=== PATIENT | female | born 1990 | race Caucasian/White ===

== ENCOUNTER 2016-07-05 02:20 | Emergency (ER) | payer MEDICAID ==
[~2016-07-05] VITALS: Ht 157.5 cm; Wt 75.1 kg
[~2016-07-05 02:20] MED LIST: AZIT500T2 PO; IBUP800T23 PO
[2016-07-05] MEDS ORDERED: TYLE325T PO (02:42)
[2016-07-05 03:09] LABS: BLOOD, URINE TRACE (NEG); GLUCOSE,URINE NEG (NEG); KETONE, URINE NEG (NEG); NITRITE,URINE NEG (NEG); PH, URINE 5.5 (5.0-8.5)
[2016-07-05 03:12] LABS: URINE COLOR YELLOW (YELLW/STRAW)
[2016-07-05 03:13] LABS: BACTERIA, URINE FEW /hpf; COMMENT (UR) CULT NOT INDICATED; CULTURE IF INDICATED CULT NOT INDICATED; RBC, URINE 0-2 /hpf (0-3); SQUAMOUS EPITHELIAL CELL URINE > 8 /hpf (0-5)
[2016-07-05] MEDS ORDERED: AZITHROMYCIN PWD FOR SUSP 1 GM PACKET PO ONE ×2 (04:45→05:00)
[2016-07-05] MEDS ORDERED: LIDOCAINE HCL 1% 50 ML VIAL IM ONE (04:45)
--- NOTE | 2016-07-05 05:10 | PD ---
HPI Chief Complaint: [place] Problem/Complaint Time Seen by Provider: 04:33 Travel History International Travel<30 days: No Contact w/Intl Traveler<30days: No Traveled to known affect area: No History of Present Illness HPI The patient is a 25-year-old female who came in with her boyfriend eloy because her boyfriend had a penile discharge. The patient denies any fever, joint pain, skin rash, sore throat, skin lesions, nausea, vomiting or vaginal discharge. Her last menstrual period was 3 weeks ago. She does not think she is . She otherwise has no symptoms. PFSH Past Medical History Asthma: Yes Heart Rhythm Problems: Yes ("heart murmur") Cancer: No Cardiovascular Problems: No Diabetes: No Diminished Hearing: No Endocrine: No Gastrointestinal Disorders: Yes (HEARTBURN) Genitourinary: Yes (URETHRAL CYST) Hepatitis: No Hiatal Hernia: No Hypertension: No Immune Disorder: No Musculoskeletal: Yes (PINCHED NERVE LOWER BACK) Neurologic: No Reproductive: No Respiratory: No Immunizations Current: Yes Thyroid Disease: No ?: Unknown LMP: 06/13/16 : 4 Para: 3 Miscarriage: 1 : 0 Past Surgical History Abdominal Surgery: No AICD: No Body Medical Devices: NA Cardiac Surgery: No Section: Yes (X3) Ear Surgery: No Endocrine Surgery: No Eye Surgery: No Genitourinary Surgery: No Gynecologic Surgery: Yes ( X 3) Joint Replacement: No Neurologic Surgery: No Oral Surgery: No Pacemaker: No Thoracic Surgery: No Other Surgery: Yes (CYsT REMOVED FROM [facility] 2012) Social History Alcohol Use: No Tobacco Use: No Substance Use: No Allergies-Medications (Allergen,Severity, Reaction): Coded Allergies: Ceclor (Verified Allergy, Severe, unknown,took right after pcn, 07/05/16) Cefprozil (Verified Allergy, Severe, unknown,took right after pcn allergy , 07/05/16) Penicillin (Verified Allergy, Severe, rash, 07/05/16) Reported Meds & Prescriptions Reported Meds & Active Scripts Active Reported Tylenol (Acetaminophen) 325 Mg Tab 650 Mg PO Q6H PRN Review of Systems Except as stated in HPI: all other systems reviewed are Neg Physical Exam Narrative GENERAL: Well-nourished, well-developed patient in no apparent distress. Her vital signs are normal. SKIN: Warm and dry no skin rash is noted. HEAD: Normocephalic. EYES: No scleral icterus. No injection or drainage. NECK: Supple, trachea midline. No JVD or lymphadenopathy. CARDIOVASCULAR: Regular rate and rhythm without murmurs, gallops, or rubs. RESPIRATORY: Breath sounds equal bilaterally. No accessory muscle use. GASTROINTESTINAL: Abdomen soft, non-tender, nondistended. No guarding or rebound is present. MUSCULOSKELETAL: No cyanosis, or edema. BACK: Nontender without obvious deformity. No CVA tenderness. Data Data Orders Ed Urine Pregnancytest Poc (07/05/16 02:37) Urinalysis - C+S If Indicated (07/05/16 02:49) Beta Hcg (Quant/Titer) (07/05/16 04:33) Azithromycin Powd Pack (Zithromax Powd P (07/05/16 04:45) Lidocaine 1% Inj (50 Ml) (Xylocaine 1% I (07/05/16 04:45) Azithromycin Powd Pack (Zithromax Powd P (07/05/16 05:00) Labs Laboratory Tests Test 07/05/16 07/05/16 03:00 04:45 Urine Color YELLOW Urine Turbidity SLIGHT Urine pH 5.5 Urine Specific [place] 1.016 Urine Protein NEG mg/dL Urine Glucose (UA) NEG mg/dL Urine Ketones NEG mg/dL Urine Occult Blood TRACE Urine Nitrite NEG Urine Bilirubin NEG Urine Leukocyte Esterase MOD Urine RBC 0-2 /hpf Urine WBC 6-8 /hpf Urine Squamous Epithelial > 8 /hpf Cells Urine Bacteria FEW /hpf Microscopic Urinalysis Comment CULT NOT INDICATED Human Chorionic Gonadotropin, 18 MIU/ML Quant [facility] Medical Decision Making Medical Screen Exam Complete: Yes Emergency Medical Condition: Yes Medical Record Reviewed: Yes Interpretation(s) The beta-hCG titer is 18. Differential Diagnosis Exposure to STD, , allergy to cephalosporins and penicillin Narrative Course The patient has exposure to STD. She is allergic to both cephalosporins and penicillin and will be given 2 g of azithromycin by mouth. The patient's test shows that the patient is in her first week of . The patient states she wants to use plan B and her boyfriend states she wants her to use plan B. Both the patient and her boyfriend want the doxycycline prescribed because they intend to use plan B and wants to terminate this . Diagnosis Primary Impression: Exposure to STD Additional Impression: Early stage of Additional Instructions: If plan B is going to be effective, you need to take it immediately, as soon as the pharmacy opens up. The doxycycline is taken one tablet twice daily for 10 days. Med/Other Pt SpecificInfo: Prescription(s) given Scripts Doxycycline Hyclate 100 Mg [id number] Mg PO BID #20 CAP Ref 0 Prov:León Boothe MD 07/05/16 Disposition: 01 DISCHARGE HOME Condition: Stable León Boothe MD Jul 05, 2016 05:10
[2016-07-05 05:11] LABS: BETA HCG QUANT 18 MIU/ML (0-5)
[2016-07-05] MEDS ORDERED: DOXY100C PO (05:23)
[2016-07-05 05:33] VITALS: BP 117/77
== END 2016-07-05 05:34 | disposition home or self-care (01) ==
LOC: PHED 02:20
DX: O26.891 Other specified pregnancy related conditions, first trimester (principal); Z3A.01 Less than 8 weeks gestation of pregnancy; Z20.2 Contact with and (suspected) exposure to infections with a predominantly sexual mode of transmission
CPT/HCPCS: 81001; 84702; 84703; 99283

== ENCOUNTER 2016-08-22 04:53 | Emergency (ER) | payer MEDICAID ==
[~2016-08-22] VITALS: Ht 157.5 cm; Wt 73.8 kg
[~2016-08-22 04:53] MED LIST changes: -AZIT500T2 PO; +DOXY100C PO; -IBUP800T23 PO; +TYLE325T PO
[2016-08-22 05:03] VITALS: BP 121/84; PULSE 79; RESP 16; TEMP 99.5; O2SAT 98
[2016-08-22] MEDS ORDERED: HYDR-3533 PO (05:12)
[2016-08-22] MEDS ORDERED: CLIN1CAP5 PO (05:12)
[2016-08-22] MEDS ORDERED: IBUPROFEN SUSP 100 MG/5 ML 120 ML BOTTLE PO ONE (05:45)
[2016-08-22] MEDS ORDERED: CLINDAMYCIN PALMITATE SOLN 75 MG/5 ML 100 ML BTL PO SCH (05:45)
--- NOTE | 2016-08-22 05:50 | PD ---
HPI Chief Complaint: Oral / Dental Pain or Problem Time Seen by Provider: 05:39 Travel History International Travel<30 days: No Contact w/Intl Traveler<30days: No Traveled to known affect area: No History of Present Illness HPI Patient is a 25 year old female who presents to ER with left sided lower molar socket pain. Patient reports that she has her wisdom teeth removed on Friday and was sent home with a prescription for clindamycin as well as for Lortab. Patient reports that the Lortab makes her nauseous, reports that she cannot tolerate this. Patient reports that she has not been taking her clindamycin as she reports "it was only today that i could swallow my own spit." Patient requesting liquid medications as well as a change of pain medications. Patient with no fevers or chills are noted complaints at this time. PFSH Past Medical History Asthma: Yes Heart Rhythm Problems: Yes ("heart murmur") Cancer: No Cardiovascular Problems: No Diabetes: No Diminished Hearing: No Endocrine: No Gastrointestinal Disorders: Yes (HEARTBURN) Genitourinary: Yes (URETHRAL CYST) Hepatitis: No Hiatal Hernia: No Hypertension: No Immune Disorder: No Musculoskeletal: Yes (PINCHED NERVE LOWER BACK) Neurologic: No Reproductive: No Respiratory: No Immunizations Current: Yes Thyroid Disease: No ?: Not : 4 Para: 3 Miscarriage: 1 : 0 Past Surgical History Abdominal Surgery: No AICD: No Body Medical Devices: NA Cardiac Surgery: No Section: Yes (X3) Ear Surgery: No Endocrine Surgery: No Eye Surgery: No Genitourinary Surgery: No Gynecologic Surgery: Yes ( X 3) Joint Replacement: No Neurologic Surgery: No Oral Surgery: No Pacemaker: No Thoracic Surgery: No Other Surgery: Yes (CYsT REMOVED FROM [facility] 2012) Social History Alcohol Use: No Tobacco Use: No Substance Use: No Allergies-Medications (Allergen,Severity, Reaction): Coded Allergies: Ceclor (Verified Allergy, Severe, unknown,took right after pcn, 08/22/16) Cefprozil (Verified Allergy, Severe, unknown,took right after pcn allergy , 08/22/16) Penicillin (Verified Allergy, Severe, rash, 08/22/16) Reported Meds & Prescriptions Reported Meds & Active Scripts Active Reported Lortab (Hydrocodone-Acetaminophen) 5-325 Mg Tab 1 Tab PO Q4H PRN Clindamycin (Clindamycin HCl) 150 Mg Cap 150 Mg PO Q6H Review of Systems General / Constitutional: No: Fever Eyes: No: Visual changes HENT: Positive: Other (lower tooth pain), No: Headaches Cardiovascular: No: Chest Pain or Discomfort Respiratory: No: Shortness of Breath Gastrointestinal: No: Abdominal Pain Genitourinary: No: Dysuria Musculoskeletal: No: Pain Skin: No Rash Neurologic: No: Weakness Psychiatric: No: Depression Endocrine: No: Polydipsia Hematologic/Lymphatic: No: Easy Bruising Physical Exam Narrative GENERAL: Well-nourished, well-developed patient. SKIN: Warm and dry. HEAD: Normocephalic. EYES: No scleral icterus. No injection or drainage. Mouth: patient with no signs of infection to lower left molars, airway patent, patient with no swelling to posterior pharynx, patient talking in full sentences NECK: Supple, trachea midline. No JVD or lymphadenopathy. CARDIOVASCULAR: Regular rate and rhythm without murmurs, gallops, or rubs. RESPIRATORY: Breath sounds equal bilaterally. No accessory muscle use. GASTROINTESTINAL: Abdomen soft, non-tender, nondistended. MUSCULOSKELETAL: No cyanosis, or edema. BACK: Nontender without obvious deformity. No CVA tenderness. Data Data Last Documented VS Vital Signs Date Time Temp Pulse Resp B/P Pulse Ox O2 Delivery O2 Flow Rate FiO2 08/22/16 05:13 08/22/16 05:03 99.5 79 16 98 Orders Ibuprofen Liq (Motrin Liq) (08/22/16 05:45) Clindamycin Liq (Cleocin Liq) (08/22/16 05:45) [facility] Medical Decision Making Medical Screen Exam Complete: Yes Emergency Medical Condition: Yes Interpretation(s) Vital Signs Date Time Temp Pulse Resp B/P Pulse Ox O2 Delivery O2 Flow Rate FiO2 08/22/16 05:13 08/22/16 05:03 99.5 79 16 121/84 98 Differential Diagnosis Tooth infection, postop pain Narrative Course 25-year-old female who presents to emergency room with complaints of postop pain to her socket after she had wisdom teeth extracted on friday. Patient reports that she was prescribed Lortab, reports that this makes her nauseous and request change of medications. Plan to change patient to tylenol #3. Patient also requesting liquid clindamycin as she is unable to swallow the clindamycin tabs. Patient will call her dentist first thing in the morning for earliest follow-up appointment Diagnosis Primary Impression: Pain of tooth socket Additional Impression: Post-operative pain Additional Instructions: Please call your dentist first thing in the morning for earliest follow-up appointment Please do not drive or operate heavy machinery while taking narcotic pain medications Return to the emergency room as needed Med/Other Pt SpecificInfo: Prescription(s) given Scripts Acetaminophen-Codeine Liq (Tylenol-Codeine Elixir)120-12 Mg/5 Ml Soln10 Ml PO Q6H PRN (PAIN) #120 ML Ref 0 Prov:Marianna Reynoso DO 08/22/16 Clindamycin Liq 75 Mg/5 Ml [id number] Mg PO Q6H 10 Days Ref 0 Prov:Marianna Reynoso DO 08/22/16 Ibuprofen Liq 100 Mg/5 Ml [id number] Mg PO Q6H PRN (PAIN SCALE 1 TO 10) 10 Days Ref 0 Prov:Marianna Reynoso DO 08/22/16 Disposition: 01 DISCHARGE HOME Condition: Stable Marianna Reynoso DO Aug 22, 2016 05:50
[2016-08-22] MEDS ORDERED: CLIN75SO PO (05:59)
[2016-08-22] MEDS ORDERED: IBUP100S7 PO (05:59)
[2016-08-22] MEDS ORDERED: ACET120S PO (05:59)
== END 2016-08-22 06:12 | disposition home or self-care (01) ==
LOC: PHED 04:53
DX: G89.18 Other acute postprocedural pain (principal)
CPT/HCPCS: 99282

== ENCOUNTER 2016-09-01 08:59 | Emergency (ER) | payer MEDICAID ==
[~2016-09-01] VITALS: Ht 157.5 cm; Wt 75.0 kg
[~2016-09-01 08:59] MED LIST changes: +ACET120S PO; +CLIN1CAP5 PO; +CLIN75SO PO; -DOXY100C PO; +HYDR-3533 PO; +IBUP100S7 PO; -TYLE325T PO
[2016-09-01 09:02] VITALS: BP 121/72; PULSE 75; RESP 16; TEMP 99; O2SAT 98
--- NOTE | 2016-09-01 09:51 | PD ---
HPI Chief Complaint: ENT Complaint Time Seen by Provider: 09:22 Travel History International Travel<30 days: No Contact w/Intl Traveler<30days: No Traveled to known affect area: No History of Present Illness HPI 26-year-old female presents with pain to her left lower face where she had her wisdom teeth removed on the 14th of this month. She states she is currently on clindamycin and was able to switch from the liquid 2 pills that she's having improvement in her swallowing. She denies any fever, vomiting or other concurrent complaints. She is concerned that she is still bruised as she's having pain in that area. She denies specific modifying factors other than if you touch or movement of the area. She states she's having difficulty getting in with her dentist. PFSH Past Medical History Asthma: Yes Heart Rhythm Problems: Yes ("heart murmur") Cancer: No Cardiovascular Problems: No Diabetes: No Diminished Hearing: No Endocrine: No Gastrointestinal Disorders: Yes (HEARTBURN) Genitourinary: Yes (URETHRAL CYST) Hepatitis: No Hiatal Hernia: No Hypertension: No Immune Disorder: No Musculoskeletal: Yes (PINCHED NERVE LOWER BACK) Neurologic: No Reproductive: No Respiratory: No Immunizations Current: Yes Thyroid Disease: No ?: Not : 4 Para: 3 Miscarriage: 1 : 0 Past Surgical History Abdominal Surgery: No AICD: No Body Medical Devices: NA Cardiac Surgery: No Section: Yes (X3) Ear Surgery: No Endocrine Surgery: No Eye Surgery: No Genitourinary Surgery: No Gynecologic Surgery: Yes ( X 3) Joint Replacement: No Neurologic Surgery: No Oral Surgery: Yes (WISDOM TEETH EXTRACTED) Pacemaker: No Thoracic Surgery: No Other Surgery: Yes (CYsT REMOVED FROM [facility]RA 2012) Social History Alcohol Use: No Tobacco Use: No Substance Use: No Allergies-Medications (Allergen,Severity, Reaction): Coded Allergies: Ceclor (Verified Allergy, Severe, unknown,took right after pcn, 09/01/16) Cefprozil (Verified Allergy, Severe, unknown,took right after pcn allergy , 09/01/16) Penicillin (Verified Allergy, Severe, rash, 09/01/16) Reported Meds & Prescriptions Reported Meds & Active Scripts Active No Active Prescriptions or Reported Medications Review of Systems Except as stated in HPI: all other systems reviewed are Neg Physical Exam Narrative GENERAL: Well-nourished, well-developed patient. Well-appearing SKIN: Warm and dry. HEAD: Normocephalic and atraumatic. EYES: No injection or drainage. ENT: No nasal drainage noted. left lower jaw without swelling, no cervical lymphadenopathy, noted without bleeding or signs of infection to area where left lower teeth were removed NECK: Supple, trachea midline. CARDIOVASCULAR: Regular rate and rhythm RESPIRATORY: No increased effort. No accessory muscle use. EXTREMITIES: No edema. NEUROLOGICAL: Awake and alert. Motor and sensory grossly within normal limits. Normal speech. Data Data Last Documented VS Vital Signs Date Time Temp Pulse Resp B/P Pulse Ox O2 Delivery O2 Flow Rate FiO2 09/01/16 09:02 99.0 75 16 121/72 98 MDM Medical Decision Making Medical Screen Exam Complete: Yes Emergency Medical Condition: Yes Medical Record Reviewed: Yes (past history confirmed) Differential Diagnosis Postop pain, postop infection, postop bleeding Narrative Course Patient with benign exam, stable vitals other than 99.0 temperature. I advised her to continue clindamycin as she has no active signs of infection on exam and has no other concurrent complaints. She agrees to this with follow-up with her dentist. Given return instructions Diagnosis Primary Impression: Post-operative pain Patient Instructions: General Instructions Additional Instructions: Alternate Tylenol and Motrin, follow with your dentist on Friday, return as needed Med/Other Pt SpecificInfo: No Change to Meds Scripts No Active Prescriptions or Reported Meds Disposition: 01 DISCHARGE HOME Condition: Stable Simin Reaves MD Sep 01, 2016 09:51
== END 2016-09-01 10:03 | disposition home or self-care (01) ==
LOC: PHED 08:59
DX: G89.18 Other acute postprocedural pain (principal); J45.909 Unspecified asthma, uncomplicated; K08.499 Partial loss of teeth due to other specified cause, unspecified class
CPT/HCPCS: 99283

== ENCOUNTER → 2017-06-12 | Outpatient (CLI) | payer MEDICAID ==
--- NOTE | 2017-06-13 23:09 | EKG ---
Date Performed: 06/12/2017 Time Performed: 13:32:32 PTAGE: 26 years EKG: Sinus rhythm WITH MARKED SINUS ARRHYTHMIA BORDERLINE ECG NO PREVIOUS TRACING DOCTOR: Mehdi Heath Interpretating Date/Time 06/13/2017 23:09:20
== END ==
LOC: HCAV 13:14
DX: Z01.818 Encounter for other preprocedural examination (principal); I49.8 Other specified cardiac arrhythmias
CPT/HCPCS: 93005